=== PATIENT | female | born 1950 | race Caucasian/White ===

== ENCOUNTER 2023-06-29 10:00 | Outpatient (RCR) | payer MEDICARE, BC, SELFPAY | END 2023-10-05 14:37 | disposition home or self-care (01) | PROVIDERS: PCP Family Medicine; Visit Provider Family Medicine | DX: M25.551 Pain in right hip (principal); Z74.09 Other reduced mobility; M62.81 Muscle weakness (generalized); R26.9 Unspecified abnormalities of gait and mobility; Z51.89 Encounter for other specified aftercare | CPT/HCPCS: 97110; 97161 ==

== ENCOUNTER 2024-10-14 22:54 | Emergency (ER) | payer MEDICARE, BC, SELFPAY ==
--- OUTSIDE RECORDS SUMMARY | 2024-10-14 22:57 | XMS_ITS | Clinical Summary ---
Author Organization [facility] Address [address] [place] [address] Care Team Providers Care Data Integrity Analyst Name Role Phone Arnulfo Cali MD Primary Care Provider Allergies Active Allergy Reactions Criticality Noted Date Comments Aspirin, Buffered Anaphylaxis High 10/03/2015 Medications atorvastatin (LIPITOR) 20 mg tabletIndications:M ixed hyperlipidemia Take 1 Tablet (20 mg) by mouth at bedtime. 90 Tablet 3 4 Active losartan (COZAAR) 25 mg tabletIndications:H TN (hypertension) Take 1 Tablet (25 mg) by mouth once daily. 90 Tablet 3 4 Active metoprolol succinate (TOPROL XL) 25 mg Sustained-Release tabletIndications:H TN (hypertension) Take 1 Tablet (25 mg) by mouth once daily. 90 Tablet 3 4 Active omeprazole (PRILOSEC) 20 mg Delayed-Release capsuleIndications: Chronic GERD Take 1 Capsule (20 mg) by mouth once daily before a meal. 90 Capsule 3 4 Active Active Problems Problem Noted Date Diagnosed Date Recurrent UTI 10/23/2022 Benign essential HTN 10/14/2017 Mixed hyperlipidemia 10/14/2017 CAD in [place] artery 10/14/2017 Multiple thyroid nodules 10/14/2017 Osteoporosis 11/26/2016 Resolved Problems Problem Noted Date Diagnosed Date Resolved Date LV dysfunction 10/14/2017 01/13/2022 Immunizations Immunization Administration Dates Next Due COVID-19 vaccine ([employer] 30mcg/0.3mL) 12YO+ [employer] ALESSANDRO MCCLENDON 11/19/2021 COVID-19 vaccine ([employer] 30mcg/0.3mL) PF, MDV 04/15/2021,09/07/2020,08/18/2020 Influenza Virus, Unspecified 03/17/2012 Influenza, High-dose Quadriv alent Inactivated 04/30/2023,04/02/2022,04/12/2020 Influenza, IIV4 05/31/2013 Influenza, Inactivated AIIV4 (Age 65+ Years) Preserv Free 03/05/2021 Pneumococcal Conj 20-valent (Prevnar 20) 023 Pneumococcal Poly,23-Valent (Pneumovax) 10/15/19 18 Pneumococcal conj 13-Valent (Prevnar 13) 017 Td (Age >=7 Years) 09/25/2011,09/02/2006 Tdap 04/30/2023 Zoster (Shingrix-RZV, recombinant) 03/20/2020, Zoster (Zostavax-ZVL, live) 08/31/2013 Family History Medical History Relation Name Comments Cancer-colon Brother 1 Heart attack Brother 2 Heart Disease Father d42 [place] Anesthesia Problem No Family History Cancer-breast No Family History Cancer-ovarian No Family History Relation Name Status Comments Brother 1 Brother 2 Father Social History Tobacco Use Types Packs/Day Years Used Date Smoking Tobacco: Never Smokeless Tobacco: Never Tobacco Cessation:Counseling Given: No Alcohol Use Standard Drinks/Week Comments No 0 (1 standard drink = 0.6 oz pur e alcohol) PHQ-2 Answer Date Recorded PHQ-2 TOTAL SCORE 0 01/26/2024 Social Connections Answer Date Recorded Frequency of Communication with Friends and Fami ly 0 01/15/2023 Financial Resource Strain Answer Date R ecorded Difficulty of Paying Living Expenses 3 01/15/2023 Difficulty of Paying Living Expenses Not on file 01/15/2023 Food Insecurity Answer Date Recorded Worried About Running Out of Food in the Last Ye ar 1 01/15/2023 Transportation Needs Answer Date Record ed Lack of Transportation (Medical) 1 01/15/2023 Housing Stability Answer Date Recorded Unable to Pay for Housing in the Last Year 1 01/15/2023 Comments No Sex and Gender Information Value Date Recorded Sex Assigned at Not on file 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 Gender Identity Not on file Sexual Orientation Not on file Obstetrics History Last Filed Vital Signs Vital Sign Reading Time Taken Comments Blood Pressure 123/81 04/11/2024 3:38 PM CDT Pulse 74 04/11/2024 3:38 PM CDT Temperature 36.7 C (98 F) 10/23/2022 2:20 PM CDT Respiratory Rate 14 01/07/2022 2:18 PM CDT Oxygen Saturation 96% 04/11/2024 3:38 PM CDT Inhaled Oxygen Concentration - - Weight 75.8 kg (167 lb) 04/11/2024 3:38 PM CDT Height 164.3 cm (5' 4.69) 04/11/2024 3:38 PM CD T Body Mass Index 28.06 04/11/2024 3:38 PM CDT Plan of Treatment Upcoming Encounters Date Type Department Care Team (Late st Contact Info) Description 01/30/2025 3:20 PM CDT Office Visit [facility] [address] [place] [address] Arnulfo Cali MD [address] [place] [address] Health Maintenance Due Date Last Done Comments RSV vaccine for adults or (1 - Risk 60-74 years 1-dose series) 2011 COVID-19 vaccine series ( season) 2024 03/28/2024, 04/30/2023, 11/19/2021, Additional history exists Colonoscopy through age 75 09/27/2024 09/27/2014 Mammogram for age 45-75 01/20/2025 01/21/20 24, 01/19/2023, 01/13/2022, Additional history exists Depression screening for age 12+ 01/25/2025 01/26/2024, 01/15/2023, 01/14/2023, Additional history exists Medicare Wellness for age 65+ 01/26/2025, 01/15/2023, 01/13/2022, Additional history exists Influenza Vaccine (Season Ended) 2025 03/05/2021, 05/31/2013, 03/17/2012 BMI (ht and wt on same day) for age 18+ 04/11/2025 04/11/2024, 01/26/2024, 01/15/2023, Additional history exists Lipids for age 45-75 01/17/2029 01/18/2024, 01/14/2023, 01/08/2022, Additional history exists Tetanus booster 04/30/2033 04/30/2023, 09/13, 09/02/2006 Hepatitis C screening for ag e 18-79 Completed 10/03/2015 Zoster (shingles) series for age 50+ Completed 03/20/2020, 01/10/2020, 08/31/2013 DEXA/DXA scan for age 65+ Completed 03/17/2022, 09/2016 Pneumococcal series for age 50+ Completed 01/15/2023, 10/14/2017, 10/08/2016 Tdap Completed 04/30/2023 Procedures Procedure Name Priority Date/Time Associated Diagnosis Comments XR MAMMO RICARDO BILAT SCREEN Routine 01/21/2024 10:32 AM CDT Visit for screening mammogram LIPID PANEL W REFLEX MEASURED LDL Routine 01/18/2024 8:08 AM CDT Mixed hyperlipidemia XR DXA BONE DENSITY 2 SITES AXIAL Routine 03/17/2022 1:47 PM CDT Osteoporosis, unspecified osteoporosis type, unspecified pathological fracture presence ANTI HCV Routine 10/03/2015 12:33 PM CDT Need for hepatitis C screening test SCAN-COLONOSCOPY 09/27/2014 12:0 0 AM CDT from Last 3 Months or Most Recently Relevant to Health Maintenance Results * XR MAMMO RICARDO BILAT SCREEN (01/21/2024 10:32 AM CDT) Anatomical Region Laterality Modality BREASTS, Breast Left, Breast Right Bilateral Mammography Impressions 01/22/2024 2:50 PM CDT There is no radiographic evidence for malignancy. Recommend annual mammograms. MAMMOGRAM ASSESSMENT: ACR 1 Negative PATIENTS: You will also receive a letter with your examination results in an easy to read format. If you have questions about your results, please contact your referring provider. Narrative 01/22/2024 2:50 PM CDT For Patients: As a result of the Century Cures Act, medical imaging exams and procedure reports are released immediately into your electronic medical record. You may view this report before your referring provider. If you have questions, please contact your health care provider. XR MAMMO RICARDO BILAT SCREEN [[id number]] CLINICAL HISTORY: This is an asymptomatic 73 y.o. patient. INDICATION FOR EXAM: Mammogram Screening. TECHNIQUE: CC & MLO views were obtained. This study was evaluated with the assistance of Computer-Aided Detection. Breast Tomosynthesis was used in interpretation. COMPARISON FILM: Yes 01/19/23 [facility] 01/13/22 [facility] FINDINGS: The breasts are heterogeneously dense, which may obscure small masses. There are no dominant masses, suspicious micro calcifications or areas of architectural distortion. us Arnulfo Cali MD MAMMO Final Result * (ABNORMAL) LIPID PANEL W REFLEX MEASURED LDL (01/18/2024 8:08 AM CDT) CHOLESTEROL,TOTAL 125 100 - 199 mg/dL 01/18/2024 4:04 PM CDT [facility] Comment: Cholesterol, Total Reference Ranges Desirable <200 mg/dL Borderline 200-239 mg/dL High >=240 mg/dL TRIGLYCERIDES 152(H) <150 mg/dL 01/18/2024 4:04 PM CDT [facility] HDL CHOLESTEROL 44 >40 mg/dL 4:04 PM CDT [facility] NON-HDL CHOLESTEROL 81 <145 mg/dl 01/18/2024 4:04 PM CDT [facility] CHOL/HDL RATIO 2.84 <4.50 01/18/2024 4:04 PM CDT [facility] LDL CHOLESTEROL 51 <=130 mg/dL 01/18/2024 4:04 PM CDT [facility] VLDL CHOLESTEROL 30 <=30 mg/dL 01/18/2024 4:04 PM CDT [facility] PROVIDER ORDERED STATUS RANDOM 01/18/2024 4:04 PM CDT [facility] Blood BLOOD SPECIMEN / Unknown Venipuncture / Unknown 01/18/2024 8:08 AM CDT 01/18/2024 8:09 AM CDT Arnulfo Cali MD CHEMISTRY Final Result [facility] [address] [place] [address], [place] * (ABNORMAL) XR DXA BONE DENSITY 2 SITES AXIAL (03/17/2022 1:47 PM CDT) Anatomical Region Laterality Modality Spine, HIPS, HIPL, HIPR Other Impressions 03/18/2022 12:49 PM CDT Osteopenia. RECOMMENDATIONS: The National Osteoporosis Foundation recommends pharmacologic treatment for patients with T-scores of -2.5 or less, patients with prior history of fragility fractures, or patients with 10-year probability of greater than 3% at hips or greater than 20% of suffering major osteoporotic fractures. Recommend continued optimization of calcium and vitamin D intake through dietary means and/or supplementation and regular exercise. Continue current Alendronate (Fosamax) medication treatment. Patient has had a good response to medications with nice improvement. Nicki Giraldo PA-C [facility] 03/18/2022 Narrative 03/18/2022 12:49 PM CDT For Patients: Results are automatically released to your [facility] account once available, in compliance with federal regulations. This means that you may see your results before your provider has had a chance to review them. Please allow 2-3 business days for your provider to comment on the results. XR DXA Bone Mineral Density (BMD) EXAM LOCATION: [address] [address] PATIENT NAME: Tiffany Izquierdo DATE OF : 1950 EXAM DATE: 03/17/2022 REQUESTING PROVIDER: Arnulfo Cali MD GENDER AT : female HEIGHT: 5' 5 (01/13/2022) WEIGHT: 165 lb (01/13/2022) MENOPAUSAL STATUS: Postmenopausal RACE/ETHNICITY: White RISK FACTORS: History of Fragility Fracture (at a major site) and White Race CURRENT MEDICATION FOR BONE LOSS: Alendronate (Fosamax) INDICATION: Follow-up of existing osteoporosis COMPARISON DATE(S): 2016 DXA scans are compared to prior studies for a patient only when the two (or more) studies were performed on the same scanner. It is not possible to compare data generated on one scanner to data from another because there are not standards in DXA equipment. This applies even if the two scanners are made by the same director of claims. PROCEDURE: Dual-energy x-ray absorptiometry performed with routine technique. Reporting is completed in the form of a T-score. The T-score represents the standard deviation from peak bone mass based on young healthy adult. A Z-score is used for diagnosis in premenopausal women, and for men under the age of 50. FINDINGS: RESULT LUMBAR SPINE L1 - L4 BMD: 1.000 g/cm2 T-Score: - 1.6 Z-Score: - 0.2 Change from prior in 2017: Increase 8.0.%. RESULTS FEMUR Left femoral neck BMD: 0.773 g/cm2 T-Score: - 1.9 Z-Score: - 0.4 Change from prior in 2017: Increase 12.2%. Right femoral neck BMD: 0.761 g/cm2 T-Score: - 2.0 Z-Score: - 0.5 Change from prior in 2017: Increase 13.9%. Left hip BMD: 0.868 g/cm2 T-Score: - 1.1 Z-Score: + 0.2 Change from prior in 2017: Increase 16.8%. Right hip BMD: 0.808 g/cm2 T-Score: - 1.6 Z-Score: - 0.3 Change from prior in 2017: Increase 9.9%. WHO criteria: Normal: T-score at or above -1 SD Osteopenia: T-score between -1.1 and -2.4 SD Osteoporosis: T-score at or below -2.5 SD us Arnulfo Cali MD DEXA Final Result * ANTI HCV [16830.2] (10/03/2015 12:33 PM CDT) HEPATITIS C ANTIBODY Non-Reacti ve Non-Reacti ve 10/03/2015 5:42 PM CDT [facility] Blood specimen (specimen) BLOOD SPECIMEN / Unknown Venipuncture / Unknown 10/03/2015 12:33 PM CDT 10/03/2015 12:33 PM CDT Narrative [facility] - 10/03/2015 5:42 PM CDT Antibodies to HCV not detected; does not exclude the possibility of exposure to HCV. us Arnulfo Cali MD SEND OUTS Final Result [facility] 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
--- OUTSIDE RECORDS SUMMARY | 2024-10-14 22:57 | XMS_ITS | Data Portability ---
Author Organization [place] [facility] - [facility] Address [address] [place] [address] Assessment Encounter Date Assessment Date Assessment LastModified by Organization Details LastModified Time 08/05/2024 08/05/2024 ASSESSMENT: Patient is a good candidate for conservative care and the prognosis is for a favorable outcome that achieves the patients' goals. We discussed etiology, activity modifications, home care, and other treatment options. Initially, it is recommended that the patient receive in-office treatment 1 times per week for 8 weeks at which time a re-evaluation will be performed to determine an appropriate change in plan. Initially, treatment will focus on joint manipulation to restore range of motion and reduce pain. We will slowly progress to therapeutic exercises and activities to improve function, strength, and stability may also be used as warranted. If the patient is not responding as expected, more invasive procedures will be discussed along with a referral. All considerations above were discussed with the patient and questions answered to satisfaction. If the patient should have any additional questions, or should the condition evolve or worsen, the patient should not hesitate to contact our office. ecram Not available 08/05/2024 16:03:20 Plan of Treatment Reminders Order Date Submit Date Provider Last Modified By Organization Details Last Modified Time Details Appointments None record ed. Lab None record ed. Referral None record ed. Procedures None record ed. Surgeries None record ed. Imaging None record ed. Medication Orders None record ed. Patient TargetsNo targets recorded. Patient InstructionsNo instructions recorded. Reason for Referral None Reported. Problems Name Problem SNOMED Code Status Onset Date Resolution Date Notes Provider Name and Address Organization Details Recorded Time Lumbar segmental dysfunction 935553484 Active 2024 Barney Fox DC [address], [facility] [place], [address], [facility] 5 16:03:21 Low back pain 728529469 Active 2024 Barney Parmjit Fox DC [address], [place], [address], [facility] 5 16:03:21 Thoracic segmental dysfunction 274238391 Active 2024 Barney Fox DC [address], [place], [address], [facility] 5 16:03:21 Somatic dysfunction of sacral spine 243484325 Active 2024 Barney Fox DC [address], [place], [address], [facility] 5 16:03:21 Problem Notes None recorded. Procedures Surgical History Date Name Laterality Status Provider Name and Address Organization Details Recorded Time 5 [address]: Spinal manipulation , 3 to 4 regions completed Barney Fox DC [address], [place], [address], [facility] 08/05/2024 16:08:33 Imaging Results None recorded. Procedure Notes None recorded. Medical Equipment None Reported. Vitals None Recorded Social History None recorded. Functional Status None recorded. Mental Status None recorded. Family History Nothing Reported. Medical History No medical history recorded. Gynecological HistoryNo gynecological history recorded. Obstetrics History GPAL:G 0 P 0 0 0 0 Past Encounters Encounter ID Performer Location Encounter Start Date Encounter Closed Date Diagnosis/Indication Diagnosis SNOMED-CT Code Diagnosis ICD10 Code Diagnosis Note [id number] JAMIN Galvez [facility] [address] [place] [phone] 08/05/2024 15:24:38 08/05/2024 16:18:39 Lumbar segmental dysfunction 452785379 M99.03 Low back pain 544419728 M54.50 Somatic dy sfunction of sacral spine 854449391 M99.04 Thoracic s egmental dysfunction 691464295 M99.02 Health Concerns Section Related Observation LastModified by Organization Detai ls LastModified Time None Recorded Concern Status LastModified by Organization Details LastModified Time None Recorded Advance Directives Directive None Recorded Payers Encounter Date Sequence Insurance Name Policy Number Policy Dolan Covered Member ID Dolan Member ID Guarantor Name 08/05/2024 2 [place]) [id number] Tiffany Cantu Timbo [id number] Esdras Izquierdo 08/05/2024 1 [place] Tiffany Izquierdo [id number] Esdras Izquierdo Notes Date Note Type Note Provider Name and Address Organization Details Recorded Time 08/05/2024 text/html HPI - Lumbar SpineReported bypatient.Location: left; With radiation to knee Quality:aching Severity:moderate; severe Timing:recurrent Duration:acute Context:bending; lifting; twisting Aggravating Factors:lifting; carrying; twisting; bending/squatting Alleviating Factors:rosalva Fox DC [address], [place], [address], [facility] [place] [facility] 08/05/2024 16:08:46 OBGyn Episode No OBEpisode recorded.
[2024-10-14 22:58] VITALS: BP 177/94; PULSE 63; RESP 16; TEMP 36.3; O2SAT 96; BMI 25.8
--- NOTE | 2024-10-14 23:34 | ED_ITS ---
HPI - Fall General Time Seen by Provider: 23:34 Date Seen: 10/14/24 Chief Complaint: Fall/Minor Trauma Stated Complaint: Fall, head lac Time Seen by Provider: 10/14/24 23:34 Source: patient and RN notes reviewed Mode of arrival: ambulatory Limitations: no limitations History of Present Illness HPI Narrative: This 74-year-old female is presenting with her daughter and in after a fall. She and her daughter were attending a christian function [employer]. They were at the cars, transferring some stuff and she simply missed the curb, fell forward hitting her head in the forehead area and the side of her left hand. There was no loss of consciousness, her daughter corroborates that history. She denies any chest pain, no palpitations, no sense of presyncope or syncope, no irregular heartbeat prior to this. It was simply that it was dark and she missed her footing. Her daughter notes that she was talking normally after and before. She was on the other side of the car, heard her fall and when she came around the car, her mom had already rolled onto her back. She does have a headache. Denies any visual changes. Her jaw and teeth feel normal. No neck or back pain, no difficulty breathing. Only pain in her extremities is along the medial side of her left hand, she thinks she hit that on the ground. No abdominal pain, no pelvic or hip pain. She is unaware of her last tetanus. Nursing staff did provide her an ice pack for her head. She is not on any blood thinners. MD complaint: fall Related Data Allergies Allergy/AdvReac Type Severity Reaction Status Date / Time No Known Drug Allergies Allergy Verified 10/14/24 23:12 Review of Systems Status of ROS: Reports: 6 or more systems reviewed and unremarkable except as noted in History and below PFSH PFS Social History Smoking Status: Never smoker Do you use any of these nicotine containing products: None Second hand tobacco smoke exposure: No How often do you have a drink containing alcohol: never How often do you have six or more drinks on one occasion: Never AUDIT-C Alcohol total score: 0 Non-prescribed substance use: denies use service: No Exam Const: Vital Signs, click to edit/add: Vital Signs - 24 hr 10/14/24 22:58 Temperature 97.4 F L Pulse Rate [Right Pulse Oximeter] 63 Respiratory Rate 16 Blood Pressure [Ri ght Upper Arm] 177/94 H Pulse Oximetry 96 Oxygen Delivery Me thod Room Air This 74-year-old female is alert, interactive, no apparent distress. She is seen in exam room 3. She is using an ice pack, does take this down for me. She has superficial abrasion overlying ecchymotic area in the left center of her fo rehead. There is small little dried blood or superficial abrasion on the upper left eyelid. There is no periorbital swelling or erythema. Pupils are equal round reactive, sclera clear, conjugate gaze. Oropharynx normal, no traumatic change. She feels her dentition occlude normally. No pain along the jaw or TMJs. She has no midline tenderness of her neck, no paraspinous tenderness, normal range of motion without pain. She is able to sit up, back inspected and no traumatic change, no midline tenderness over her spine. Chest posteriorly and anteriorly without traumatic change, nontender. Lungs are clear, good air entry, no wheezing or crackles, no tachypnea, no accessory muscle use. CV regular rate and rhythm, no murmur, normal S1-S2, no S3-S4. Abdomen is soft, nontender, nondistended, no organomegaly, rebound or guarding. No tenderness over her hips. She has no tenderness over her clavicles shoulders upper arms elbows forearms wrists, right hand. On her left hand she is tender along the 5th metacarpal, still able to move her fingers, has full flexion-extension of this wrist, no tenderness over the wrist itself, no snuffbox tenderness. No tenderness over lower extremities, did ambulate in without difficulty. Documenting provider has reviewed patient's vital signs: yes Course Course ED Course: Did discuss that I usually would proceed with head CT imaging just to ensure no underlying traumatic change. Aging does place patients at higher incidence of risk for traumatic brain injury and on traumatic injuries in general. Will also x-ray her left hand. Nursing staff look up to see when her last tetanus was. She will continue icing her forehead, we have reviewed that she will need to use bacitracin to the abraded areas until healed. There is nothing to suture. There is no bleeding that requires any further intervention at this time. Will give her 650 mg Tylenol for pain control. Reevaluation(s) Time of Reevaluation #1: 00:02 Reevaluation #1: 04/30/2023 is patient's last listed tetanus, thus up-to-date. Time of Reevaluation #2: 00:44 Reevaluation #2: Reviewed normal head CT as far as no acute intracranial pathology. Will have nursing staff apply some bacitracin. We discussed wound care. Her x-ray of her hand is not showing any fracture, her hand does not seem to be is painful at this time. Palpation of the metacarpal shaft itself both on the dorsum as well as the volar surface is not revealing any tenderness. I can now palpate the soft tissues along the side of this hand, is not causing her any significant tenderness. Vital Signs Vital signs: Initial Vital Signs Temperature 97.4 F L 10/14/24 22:58 Temperature Source Temporal Artery Scan 10/14/24 22:58 Pulse Rate 63 10/14/24 22:58 Respiratory Rate 16 10/14/24 22:58 Blood Pressure 177/94 H 10/14/24 22:58 Blood Pressure Mean 121 H 10/14/24 22:58 Blood Pressure Position Semi-Fowlers 10/14/24 22:58 Pulse Oximetry 96 10/14/24 22:58 Oxygen Delivery Method Room Air 10/14/24 22:58 Vital Signs Temperature 97.4 F L 10/14/24 22:58 Pulse Rate 63 10/14/24 22:58 Respiratory Rate 16 10/14/24 22:58 Blood Pressure 177/94 H 10/14/24 22:58 Pulse Oximetry 96 10/14/24 22:58 Oxygen Delivery Method Room Air 10/14/24 22:58 Temperature 97.4 F L 10/14/24 22:58 Pulse Rate 63 10/14/24 22:58 Respiratory Rate 16 10/14/24 22:58 Blood Pressure 177/94 H 10/14/24 22:58 Pulse Oximetry 96 10/14/24 22:58 Oxygen Delivery Method Room Air 10/14/24 22:58 Medications Administered Medications: Generic Name Dose Route Start Last Admin Trade Name Freq PRN Reason Stop Dose Admin Acetaminophen 650 mg 10/14/24 23:56 10/15/24 00:05 Acetaminophen 325 Mg Tablet PO 10/14/24 23:57 650 mg ONCE ONE Administration MDM - Fall Imaging Data CT scan - head: Attestation: I have reviewed the pertinent imaging results. Radiologist's impression: Patient: CONNOR TAVAREZ Facility:?[facility] Patient ID:?[id number] Site Patient ID:?[id number]. Site :?[id number] Study:?CT-Head W/O-10/15/2024 12:23:01 AM Ordering Physician:Bonifacio Marin Final Report: INDICATION: Trauma. TECHNIQUE: CT head without contrast. COMPARISON: None. FINDINGS: No acute intracranial hemorrhage. No CT evidence of acute territorial infarct. No hydrocephalus or midline shift. Normal cerebral parenchymal volume. There are chronic microvascular ischemic changes. Left frontal superficial soft tissue swelling is noted. No underlying calvarial fracture appreciated. There is mucosal sinus disease of the ethmoid air cells. The remainder of the visualized paranasal sinuses and mastoid air cells are well ventilated. No acute calvarial fracture. IMPRESSION: 1. No acute intracranial abnormality. 2. Left frontal superficial scalp hematoma without underlying fracture. Please note that all CT scans at this facility use dose modulation, iterative reconstruction, and/or weight-based dosing when appropriate to reduce radiation dose to as low as reasonably achievable. Dictated by Remy Mcconnell MD @ 10/15/2024 12:35:53 AM (Electronic Signature) XR left hand: Attestation: I have reviewed the pertinent imaging results. Radiologist's impression: Patient: CONNOR TAVAREZ Facility:?[facility] Patient ID:?[id number] Site Patient ID:?[id number] Site :?[id number] Study:?XRay-Extremity Left HAND 3V-10/15/2024 12:22:26 AM Ordering Physician:Bonifacio Marin Final Report: Indication: Trauma. Technique: Three views of the left hand. Comparison: None. Findings/Impression: No acute fracture, dislocation, or suspicious osseous lesion. Chronic appearing deformity of the 5th metacarpal shaft. Wrist alignment is preserved. Scattered degenerative changes are noted, most prominent at the DIP joints. Dictated by Reym Mcconnell MD @ 10/15/2024 12:27:18 AM (Electronic Signature) Discharge Plan Discharge Clinical Impression: Fall Qualifiers: Encounter type: initial encounter Qualified Code(s): W19.XXXA - Unspecified fall, initial encounter Forehead contusion Qualifiers: Encounter type: initial encounter Qualified Code(s): S00.83XA - Contusion of other part of head, initial encounter Forehead abrasion Qualifiers: Encounter type: initial encounter Qualified Code(s): S00.81XA - Abrasion of other part of head, initial encounter Contusion of hand, left Qualifiers: Encounter type: initial encounter Qualified Code(s): S60.222A - Contusion of left hand, initial encounter Patient Disposition: Home, Self-Care Condition: Stable Instructions: Contusion in Adults (ED), Abrasion (ED) Additional Instructions: Ice to your hand and forehead for the next couple days to help decrease pain and swelling. Keep bacitracin on the abrasions on your forehead, apply 4 times a day and extra if needed. Keep applying bacitracin until wounds are healing. May shower, gently pat dry a the forehead but do not rub, apply bacitracin after showering. If there is concern for infection, please seek re-evaluation. Can continue with Tylenol per bottle directions as needed for discomfort. Activity Level: Activity as Tolerated Follow Up/Referrals: Arnulfo Cali MD [Primary Care Provider] - Stand Alone Forms: [facility] Info Instructions
--- NOTE | 2024-10-14 23:49 | CRLHL7_ITS ---
For Patients: As a result of the Century Cures Act, medical imaging exams and procedure reports are released immediately into your electronic medical record. You may view this report before your referring provider. If you have questions, please contact your health care provider. Indication: Trauma. Technique: Three views of the left hand. Comparison: None. Findings/Impression: No acute fracture, dislocation, or suspicious osseous lesion. Chronic appearing deformity of the 5th metacarpal shaft. Wrist alignment is preserved. Scattered degenerative changes are noted, most prominent at the DIP joints. Dictated by Remy Mcconnell MD @ 10/15/2024 12:27:18 AM (Electronically Signed)
--- NOTE | 2024-10-14 23:49 | CRLHL7_ITS ---
For Patients: As a result of the Century Cures Act, medical imaging exams and procedure reports are released immediately into your electronic medical record. You may view this report before your referring provider. If you have questions, please contact your health care provider. INDICATION: Trauma. TECHNIQUE: CT head without contrast. COMPARISON: None. FINDINGS: No acute intracranial hemorrhage. No CT evidence of acute territorial infarct. No hydrocephalus or midline shift. Normal cerebral parenchymal volume. There are chronic microvascular ischemic changes. Left frontal superficial soft tissue swelling is noted. No underlying calvarial fracture appreciated. There is mucosal sinus disease of the ethmoid air cells. The remainder of the visualized paranasal sinuses and mastoid air cells are well ventilated. No acute calvarial fracture. IMPRESSION: 1. No acute intracranial abnormality. 2. Left frontal superficial scalp hematoma without underlying fracture. Please note that all CT scans at this facility use dose modulation, iterative reconstruction, and/or weight-based dosing when appropriate to reduce radiation dose to as low as reasonably achievable. Dictated by Remy Mcconnell MD @ 10/15/2024 12:35:53 AM (Electronically Signed)
--- OUTSIDE RECORDS SUMMARY | 2024-10-15 00:03 | XMS_ITS | Clinical Summary ---
Author Organization [employer] Address [address] [place] [id number] Care Team Providers Care Records Management Clerk Name Role Phone Arnulfo Cali MD Primary [...] HTN 10/14/2017 Mixed hyperlipidemia 10/14/2017 CAD in [place] artery 10/14/2017 Multiple thyroid nodules 10/14/2017 Osteoporosis 11/26/2016 Resolved Problems Problem Noted Date Diagnosed Date Resolved Date LV dysfunction 10/14/2017 01/13/2022 Immunizations Immunization Administration Dates Next Due COVID-19 vaccine ([employer] [place] NTech 30mcg/0.3mL) 12YO+ [employer] ALESSANDRO MCCLENDON 11/19/2021 COVID-19 vaccine (GTx[employer] 30mcg/0.3mL) PF, MDV 04/15/2021,09/07/2020,08/18/2020 Influenza Virus, Unspecified [...] attack Brother 2 Heart Disease Father d42 [place] Anesthesia Problem No Family History Cancer-breast No [...] on file Legal Sex Female 5:21 AM [employer] Gender Identity Not on file Sexual Orientation [...] Description 01/30/2025 3:20 PM CDT Office Visit [facility] [email or web address]] [address] [place] [address] Arnulfo Cali MD [address] [place] [address] Health Maintenance Due Date Last Done Comments [...] care provider. XR MAMMO RICARDO BILAT SCREEN [[id number]] CLINICAL HISTORY: This is an asymptomatic 73 y.o. patient. INDICATION FOR EXAM: Mammogram Screening. TECHNIQUE: CC & MLO views were obtained. This study was evaluated with the assistance of Computer-Aided Detection. Breast Tomosynthesis was used in interpretation. COMPARISON FILM: Yes 01/19/23 [facility] 01/13/22 [facility] FINDINGS: The breasts are heterogeneously dense, which may obscure small masses. There are no dominant masses, suspicious micro calcifications or areas of architectural distortion. us Arnulfo Cali MD MAMMO Final Result * (ABNORMAL) LIPID PANEL W REFLEX MEASURED LDL (01/18/2024 8:08 AM CDT) CHOLESTEROL,TOTAL 125 100 - 199 mg/dL 01/18/2024 4:04 PM CDT [facility] Comment: Cholesterol, Total Reference Ranges Desirable <200 mg/dL Borderline 200-239 mg/dL High >=240 mg/dL TRIGLYCERIDES 152(H) <150 mg/dL 01/18/2024 4:04 PM CDT [facility] HDL CHOLESTEROL 44 >40 mg/dL 4:04 PM CDT [facility] NON-HDL CHOLESTEROL 81 <145 mg/dl 01/18/2024 4:04 PM CDT [facility] CHOL/HDL RATIO 2.84 <4.50 01/18/2024 4:04 PM CDT [facility] LDL CHOLESTEROL 51 <=130 mg/dL 01/18/2024 4:04 PM CDT [facility] VLDL CHOLESTEROL 30 <=30 mg/dL 01/18/2024 4:04 PM CDT [facility] PROVIDER ORDERED STATUS RANDOM 01/18/2024 4:04 PM CDT [facility] Blood BLOOD SPECIMEN / Unknown Venipuncture / Unknown 01/18/2024 8:08 AM CDT 01/18/2024 8:09 AM CDT Arnulfo Cali MD CHEMISTRY Final Result [facility] [address] [place] [address], [place] * (ABNORMAL) XR DXA BONE DENSITY [...] medications with nice improvement. Nicki Giraldo PA-C [facility] 03/18/2022 Narrative 03/18/2022 12:49 PM CDT For Patients: Results are automatically released to your [facility] ([email or web address]) account once available, in compliance with federal regulations. This means that you may see your results before your provider has had a chance to review them. Please allow 2-3 business days for your provider to comment on the results. XR DXA Bone Mineral Density (BMD) EXAM LOCATION: [address] [address] PATIENT NAME: Tiffany Izquierdo DATE OF : [...] two scanners are made by the same spanish speaking babysitter. PROCEDURE: Dual-energy x-ray absorptiometry performed with routine [...] MD DEXA Final Result * ANTI HCV [[id number]] (10/03/2015 12:33 PM CDT) HEPATITIS C ANTIBODY Non-Reacti ve Non-Reacti ve 10/03/2015 5:42 PM CDT [facility] Blood specimen (specimen) BLOOD SPECIMEN / Unknown Venipuncture / Unknown 10/03/2015 12:33 PM CDT 10/03/2015 12:33 PM CDT Narrative [facility] - 10/03/2015 5:42 PM CDT Antibodies to HCV not detected; does not exclude the possibility of exposure to HCV. us Arnulfo Cali MD SEND OUTS Final Result [facility] [address] [place] [address], [place] * SCAN-COLONOSCOPY (09/27/2014 12:00 AM CDT) us Scanner OTHER Final Result from Last 3 Months or Most Recently Relevant to Health Maintenance Insurance [employer] BL[employer] MR PB ONLY MEDICARE PART B HB ONLY [employer] BLUE HB ONLY [employer] BLUE MR PB ONLY [employer] BLUE MR PB ONLY Advance Directives Documents on File Type Date Recorded Patient Concrete Inspector Expl anation Healthcare Directive 07/16/2015 2:11 PM MERCED[place], 07/03/2015 Care Teams Records Management Clerk Relationship Specialty Start Date End Date Arnulfo Cali MD [address] [place] [address] PCP - General Family Practice 09/13/15
[2024-10-15] MEDS: ACETAMINOPHEN 325 MG TABLET 650 MG PO (00:05)
[2024-10-15] MEDS: BACITRACIN 0.9 GM PACKET 1 EACH TOPICAL (00:46)
== END 2024-10-15 01:01 | disposition home or self-care (01) ==
PROVIDERS: Emergency Provider Family Medicine; PCP Family Medicine
DX: S60.222A Contusion of left hand, initial encounter (principal); S00.83XA Contusion of other part of head, initial encounter; W01.0XXA Fall on same level from slipping, tripping and stumbling without subsequent striking against object, initial encounter
CPT/HCPCS: 70450; 73130; 99284; A9270